=== PATIENT | male | born 1975 ===

== ENCOUNTER 2017-03-16 21:36 | Emergency (ER) | payer OTHER ==
[2017-03-16] MEDS ORDERED: Sodium Chloride 0.9% 1,000 ML IV STA (22:11)
[2017-03-16 22:49] LABS: BASO % 1.2 % (0.0-2.0); HEMOGLOBIN 15.6 g/dL (12.0-18.0); LYMPH # 0.9 K/uL (1.0-4.3); LYMPH % 24.6 % (20.0-40.0); MEAN CELL VOLUME 93.2 fl (80.0-94.0); MEAN CORPUSCULAR HEMOGLOBIN 31.6 pg (27.0-31.0); MEAN PLATELET VOLUME 7.6 fl (7.2-11.7); MONO # 0.4 K/uL (0.0-0.8); NEUT # 2.2 K/uL (1.8-7.0); NEUT % 63.2 % (50.0-75.0); NRBC % 0.2 % (0.0-0.0); RBC 4.92 Mil/uL (4.40-5.90); RED CELL DISTRIBUTION WIDTH 13.4 % (11.5-14.5); WHITE BLOOD COUNT 3.5 K/uL (4.8-10.8)
--- NOTE | 2017-03-16 22:54 | ED PDOC ---
HPI: General Adult Time Seen by Provider: 03/16/17 21:52 Chief Complaint (Nursing): Flu-like Symptoms History Per: Patient Additional Complaint(s): Pt. states since yesterday he's had fever, sore throat, cough, weakness, and chest pain with SOB. Pt. states he took Motrin yesterday but no meds today. Also c/o diffuse bodyaches. Denies sick contacts, recent travel, hemoptysis, abdominal pain, diarrhea, rash. Past Medical History Reviewed: Historical Data, Nursing Documentation, Vital Signs Vital Signs: Last Vital Signs Temp 99.2 F 03/17/17 01:39 Pulse 91 H 03/17/17 01:39 Resp 18 03/17/17 01:39 BP 117/62 03/17/17 01:39 Pulse Ox 98 03/17/17 01:39 - Family History Family History: States: No Known Family Hx - Home Medications Home Medications: Ambulatory Orders Medication Instructions Recorded Oseltamivir Phosphate [Tamiflu] 75 mg PO BID #9 capsule 03/17/17 - Allergies Allergies/Adverse Reactions: Allergies Allergy/AdvReac Type Severity Reaction Status Date / Time honey Allergy RASH Verified 03/16/17 21:45 shellfish derived Allergy DIARRHEA Verified 03/16/17 21:45 Review of Systems ROS Statement: Except As Marked, All Systems Reviewed And Found Negative Constitutional: Positive for: Fever, Weakness, Malaise ENT: Positive for: Throat Pain Respiratory: Positive for: Cough Gastrointestinal: Positive for: Nausea, Vomiting Physical Exam - Reviewed Nursing Documentation Reviewed: Yes Vital Signs Reviewed: Yes - Physical Exam Appears: Positive for: Well, Non-toxic, No Acute Distress Head Exam: Positive for: ATRAUMATIC, NORMAL INSPECTION, NORMOCEPHALIC Skin: Positive for: Normal Color, Warm. Negative for: Rash Eye Exam: Positive for: EOMI, Normal appearance, PERRL ENT: Positive for: Normal ENT Inspection Neck: Positive for: Normal, Painless ROM Cardiovascular/Chest: Positive for: Regular Rate, Rhythm Respiratory: Positive for: CNT, Normal Breath Sounds Gastrointestinal/Abdominal: Positive for: Normal Exam, Soft. Negative for: Tenderness Back: Positive for: Normal Inspection. Negative for: L CVA Tenderness, R CVA Tenderness Extremity: Positive for: Normal ROM Neurologic/Psych: Positive for: Alert, Oriented. Negative for: Aphasia, Facial Droop - Laboratory Results Result Diagrams: 03/16/17 22:41 03/16/17 22:41 - ECG ECG: Positive for: Interpreted By Me ECG Rhythm: Positive for: Sinus Rhythm. Negative for: ST/T Changes O2 Sat by Pulse Oximetry: 98 - Radiology X-Ray: Interpreted by Me (CXR) X-Ray Interpretation: No Acute Disease - Progress ED Course And Treament: Labs ordered. EKG ordered. NS bolus x 1 ordered. 0018 RN informed me that pt.'s O2 was 92% on RA. 0021 On re-evaluation, pt. sleeping comfortably states he is feeling much better. Denies SOB, chest pain. Repeat POX: 98% on RA. Repeat temp: 101.2. Motrin 800mg PO, IV NS bolus x 1 ordered. Disposition - Clinical Impression Clinical Impression: Influenza-like symptoms - Patient ED Disposition Is Patient to be Admitted: No - Disposition Referrals: [facility] [place] [Outside] [facility] [place] [Outside] Disposition: Routine/Home Disposition Time: 01:45 Condition: IMPROVED Prescriptions: Oseltamivir Phosphate [Tamiflu] 75 mg PO BID #9 capsule Instructions: Influenza (ED) Forms: [facility] ([place]), [facility] ED School/Work Excuse
[2017-03-16 22:56] LABS: ALB/GLOB RATIO 1.4 (1.0-2.1); ALBUMIN 4.5 g/dL (3.5-5.0); ALT/SGPT 41 U/L (21-72); AST/SGOT 29 U/L (17-59); BLOOD UREA NITROGEN 17 mg/dl (9-20); CALCIUM 9.1 mg/dL (8.4-10.2); GFR AFRICAN-AMERICAN > 60; GFR NON-AFRICAN AMERICAN > 60
[2017-03-16 22:59] VITALS: BMI 29.5
[2017-03-16 23:26] LABS: VENOUS BLOOD GAS BASE EXCESS -0.9 mmol/L (0.0-2.0); VENOUS BLOOD GAS PCO2 24 mmHg (40-60); VENOUS BLOOD GAS PO2 51 mm/Hg (30-55); VENOUS BLOOD PH 7.53 (7.32-7.43)
[2017-03-16 23:27] LABS: SQUAMOUS EPITHIAL < 1 /hpf (0-5); URINE BACTERIA RARE (<OCC); URINE BILIRUBIN NEGATIVE (NEGATIVE); URINE BLOOD NEGATIVE (NEGATIVE); URINE CLARITY CLOUDY (Clear); URINE COLOR YELLOW (YELLOW); URINE GLUCOSE (UA) NEG (Normal); URINE LEUKOCYTE ESTERASE NEG Leu/uL (Negative); URINE NITRATE NEGATIVE (NEGATIVE); URINE PROTEIN 30 mg/dL (NEGATIVE)
[2017-03-17 00:13] VITALS: RESP 18
[2017-03-17] MEDS ORDERED: Sodium Chloride 0.9% 1,000 ML IV STA (00:17)
[2017-03-17 01:11] VITALS: O2SAT 98
[2017-03-17 01:39] VITALS: BP 117/62; PULSE 91; TEMP 99.2
--- NOTE | 2017-03-17 11:37 | RAD ---
HISTORY: fever COMPARISON: No prior. FINDINGS: LUNGS: No active pulmonary disease. PLEURA: No significant pleural effusion identified, no pneumothorax apparent. CARDIOVASCULAR: Normal. OSSEOUS STRUCTURES: No significant abnormalities. VISUALIZED UPPER ABDOMEN: Normal. OTHER FINDINGS: None. IMPRESSION: No active disease.
--- NOTE | 2017-03-17 17:56 | CARD ---
APPROVED REPORT EKG Measurement Heart [id number] <Conclusion> Sinus tachycardia Otherwise normal ECG
== END 2017-03-17 01:50 | disposition home or self-care (01) ==
LOC: H.ER 21:36
DX: J11.1 Influenza due to unidentified influenza virus with other respiratory manifestations (principal)
CPT/HCPCS: 71045; 80053; 81003; 82803; 85025; 87040; 87070; 87430; 87804; 93005; 96374; 99283; J2405; J7040